=== PATIENT | male | born 1985 | race Caucasian/White ===

== ENCOUNTER 2021-12-03 09:01 | Emergency (ER) | payer SELFPAY ==
[2021-12-03 09:10] VITALS: BP 134/101; PULSE 108; RESP 16; TEMP 36.7; O2SAT 99; BMI 24.3
--- NOTE | 2021-12-03 09:29 | W.ED.DENTAL ---
HPI - Dental/Oral General: Chief complaint: Dental/Oral Stated complaint: tooth ache Time Seen by Provider: 12/03/21 09:18 History of Present Illness: Patient comes in with tooth pain. States that he has a tooth that started bothering her a couple of days ago that has been bad for a while. States the pain really started just a couple of days ago when he went camping. Associated symptoms: Denies fever(s) or odynophagia Review of Systems Const: Denies: fever(s) or body aches Eyes: Denies: change in vision or blurry vision ENMT: Reports: dental pain; Denies: throat pain or odynophagia Card: Denies: chest pain or palpitations Resp: Denies: dyspnea or productive cough GI: Denies: abdominal pain, nausea or vomiting : Denies: flank pain or dysuria Musc: Denies: neck pain or back pain Skin/Breast: Denies: rash or pruritus Neuro: Denies: headache(s) or numbness in extremities Psych: Denies: anxiety or change in appetite Endo: Denies: polyuria or excessive sweating Physical Exam Const: COMMON NORMALS: no acute distress, patient oriented x3, healthy appearing and alert HENMT: COMMON NORMALS: normocephalic and atraumatic HEAD & SCALP: normocephalic and atraumatic OTHER: multiple dental caries, tooth #18 is broken with dental caries, no fluctuant fluid collections next to the tooth. Eye: COMMON NORMALS: Equal, round and reactive pupils present and EOMs intact bilaterally PUPIL: Yes Equal, round and reactive pupils present Neck/C-Spine: COMMON NORMALS: full ROM and supple Resp: COMMON NORMALS: normal respiratory effort, No retractions and No use of accessory muscles Cardio: COMMON NORMALS: regular rate and regular rhythm RATE: regular rate RHYTHM: regular rhythm GI: COMMON NORMALS: Normal to inspection, nondistended, normoactive bowel sounds present, Soft to palpation and non-tender PALPATION: Yes Soft to palpation Back/Pelvis: COMMON NORMALS: thoracic and lumbar spine normal to inspection and no thoracic nor lumbar tenderness Extremity: COMMON NORMALS: normal to inspection and full ROM Neuro: COMMON NORMALS: patient oriented x3 SENSORIUM/ORIENTATION: Yes alert Psych: COMMON NORMALS: mental status grossly normal and cooperative Skin: COMMON NORMALS: no rashes or lesions noted and no wounds GENERAL SKIN EXAM: no rashes or lesions noted Course Vital Signs: Vital signs: Vital Signs Temperature 98.1 F 12/03/21 09:10 Pulse Rate 108 H 12/03/21 09:10 Respiratory Rate 16 12/03/21 09:10 Blood Pressure 134/101 12/03/21 09:10 Pulse Oximetry 99 12/03/21 09:10 MDM - Dental/Oral Medical Decision Making Patient comes in with tooth pain. States that he has a tooth that started bothering her a couple of days ago that has been bad for a while. States the pain really started just a couple of days ago when he went camping. On physical exam he has multiple dental caries, however tooth #18 is broken with dental caries, no fluctuant fluid collections next to the tooth. We will start him on antibiotics, pain medication, and discharge precautions return for worsening or changing symptoms. He states he has an appointment with the dentist on Sunday morning. Discharge Plan Discharge Patient Disposition: Home Clinical Impression: Fracture of tooth, Dental caries, Toothache Condition: Stable Prescriptions: New hydrocodone-acetaminophen 5-325 mg tablet 1 tab PO Q6H PRN (Reason: pain) Qty: 14 0RF penicillin V potassium 500 mg tablet 500 mg PO BID 7 Days Qty: 14 0RF No Action Fish Amoxil 1,000 mg PO DAILY 0RF Discharge Orders: Discharge ED (Routine); Ordered 12/03/21 Ordered By: Jose A Martinez Patient Instructions: Opioid Safety Coding Level of Care Code ED Compo Conveyor Operator for Shahriar Raines
[2021-12-03] MEDS: ketorolac 30 mg/mL INJ IM (09:30)
== END 2021-12-03 09:37 | disposition home or self-care (01) ==
PROVIDERS: Emergency Provider Emergency Medicine
DX: K03.81 Cracked tooth (principal); K02.9 Dental caries, unspecified
CPT/HCPCS: 96372; 99283; J1885

== ENCOUNTER 2023-11-23 13:03 | Emergency (ER) | payer SELFPAY ==
[2023-11-23 13:12] VITALS: BP 171/104; PULSE 68; RESP 18; O2SAT 99
--- NOTE | 2023-11-23 13:47 | ED_ITS ---
HPI - Dental/Oral 2 General: Chief complaint: Dental/Oral Stated complaint: tooth pain Time Seen by Provider: 11/23/23 13:32 Source: patient Mode of arrival: ambulatory Limitations: no limitations History of Present Illness: Patient is a 38-year-old male presents to ED today along with his mother for evaluation of dental pain over the past several days. Patient states he has dental pain to the right upper and lower teeth. He states he sees Dr. Brasher for his dentist but their office is closed today. He has not noticed any swelling to his face or neck. He is eating and drinking adequately. No trouble swallowing or breathing or controlling secretions. MD Complaint: tooth pain Teeth map: 1. 2. Onset (ago): day(s) Duration: constant Severity: severe Relieving factors: nothing Exacerbating factors: nothing Associated symptoms: Reports no associated symptoms; Denies ear or mastoid pain, fever(s) or odynophagia Treatment prior to arrival: oral analgesic Review of Systems 2 Const: Denies: fever(s), chills, body aches, fatigue or malaise ENMT: Reports: dental pain; Denies: throat pain, uvular edema, enlarged tonsils, odynophagia, hoarseness, mouth pain, swelling of lips/tongue, ear or mastoid pain or sinus pain Card: Denies: chest pain GI: Denies: nausea or vomiting Musc: Denies: neck pain Skin/Breast: Denies: rash Neuro: Denies: headache(s) Physical Exam 2 Const: COMMON NORMALS: no acute distress, average body habitus, no limitations, healthy appearing, alert and well nourished HENMT: FACE & SINUS: normal facial exam; no erythema and no edema MOUTH: Normal oral and palatal mucosa present and lip normal TEETH & GINGIVA: Yes caries and Yes other (no obvious dental abscess) TEETH & GINGIVA IMAGES: 1. dental caries 2. dental caries THROAT: posterior oropharynx normal and tonsils normal; no uvular edema Neck/C-Spine: COMMON NORMALS: no lymphadenopathy GENERAL: No anterior neck swelling and No submandibular swelling Neuro: SENSORIUM/ORIENTATION: Yes alert Course 2 Vital Signs: Vital signs: Vital Signs Pulse Rate 68 11/23/23 13:12 Respiratory Rate 18 11/23/23 13:12 Blood Pressure 171/104 11/23/23 13:12 Pulse Oximetry 99 11/23/23 13:12 Oxygen Delivery Me thod Room Air 11/23/23 13:12 MDM - Dental/Oral Medical Decision Making Patient will be placed on antibiotics and recommend he contact Dr. Brasher next week for follow-up. Return to ED precautions given. Differential Diagnosis Likely dental caries and toothache Medical Records I reviewed the patient's medical records. No radiology studies performed this visit Discharge Plan Discharge Patient Disposition: Home Clinical Impression: Dental caries, Toothache Condition: Stable Prescriptions: New clindamycin HCl 300 mg capsule 300 mg PO Q6H 7 Days Qty: 28 0RF Discontinued Fish Amoxil 1,000 mg PO DAILY No Action hydrocodone-acetaminophen 5-325 mg tablet 1 tab PO Q6H PRN (Reason: pain) Qty: 14 0RF Discharge Orders: Discharge ED (Routine); Ordered 11/23/23 Ordered By: Monique Webber Patient Instructions: Toothache (ED) Coding Level of Care Code ED Law Enforcement Director for Shahriar Raines
[2023-11-23] MEDS: ketorolac 60 mg/2 mL INJ IM (14:06)
[2023-11-23 14:15] VITALS: BP 146/99; PULSE 71; RESP 16; TEMP 36.8; O2SAT 98
== END 2023-11-23 14:19 | disposition home or self-care (01) ==
PROVIDERS: Emergency Provider Physician Assistant
DX: K02.9 Dental caries, unspecified (principal)
CPT/HCPCS: 96372; 99284; J1885

== ENCOUNTER 2024-10-20 10:57 | Emergency (ER) | payer SELFPAY ==
[2024-10-20 11:04] VITALS: BP 138/92; PULSE 107; RESP 18; TEMP 36.7; O2SAT 97; BMI 32.1
--- NOTE | 2024-10-20 11:59 | CT_ITS ---
WS: [id number] CT FACIAL BONES with and without contrast HISTORY: concern for infection TECHNIQUE: Images obtained from the supraorbital location through the mandible. Soft tissue and bone windows are reviewed. Coronal and sagittal reformats have also been submitted. DLP: 2389.[address] scans at [facility] use at least one of these dose optimization techniques: automated exposure control; mA and/or kV adjustment per patient size (includes targeted exams where dose is matched to clinical indication); or iterative reconstruction. COMPARISON: None available. Contrast: Omnipaque 350, 100 mL. Very mild soft tissue thickening surrounding the nose. Area of decreased attenuation measuring 11 mm along the mid bridge of the nose. Possible subperiosteal abscess along the mid nasal bone. The bone itself does not appear to be destroyed. There is only mild soft tissue edema. No additional areas of a bnormal enhancement. No additional fluid collections or abscesses. No air-fluid levels within the paranasal sinuses. There is a small mucous retention cyst in the RIGHT maxillary sinus. Mastoid air cells are clear. Mild ethmoid air cell disease. Negative orbits and globes. Small cervical chain lymph nodes. Largest lymph node is at level 2A on the RIGHT measuring 12 mm which is indeterminate.. CT/CT facial bones wo/w con [id number] IMPRESSION: 1. Possible very small subperiosteal abscess along the bridge of the nose. Abs cess measures 11 mm in maximum diameter. No underlying osseous abnormality. 2. Mild soft tissue edema over the mid face including the nose and maxilla. 3. Indeterminate cervical chain lymph nodes. The largest lymph node 12 mm on t he RIGHT at level 2A.
--- NOTE | 2024-10-20 11:59 | CT_ITS ---
WS: [id number] CT HEAD NONCONTRAST HISTORY: headache, h/o infection TECHNIQUE: Contiguous axial imaging performed through the brain. Bone and soft tissue windows. Sagittal and coronal reformats reviewed. All CT scans at [facility] use at least one of these dose optimization techniques: automated exposure control; mA and/or kV adjustment per patient size (includes targeted exams where dose is matched to clinical indication); or iterative reconstruction. DLP: 2389.58 mGy COMPARISON: None available. No acute intracranial hemorrhage, midline shift or mass effect. No atrophy or prior infarcts or herniation. Ventricles: Normal size with no hydrocephalus. No inferior displacement of the cerebellar tonsils. Paranasal sinuses: Mild ethmoid sinus mucoperiosteal disease. No air-fluid levels in the sinuses. Mastoid air cells: Well pneumatized. Calvarium and scalp: Skull is intact with no soft tissue edema or swelling. CT/CT head wo con* [id number] IMPRESSION: 1. No acute intracranial hemorrhage or edema. 2. No prior infarct or acute infarct. 3. Minimal ethmoid air cell disease.
[2024-10-20 13:31] LABS: Basophils # 0.1 10^3/uL (0.0-0.1); Basophils % 0.9 %; Eosinophils # 0.3 10^3/uL (0.0-0.8); Eosinophils % 2.2 %; Hematocrit 41.2 % (37-53); Lymphocytes % 32.2 %; Mean Corpuscular HGB Conc 32.3 g/dL (30-55); Mean Corpuscular Hemoglobin 29.4 pg (27-33); Mean Corpuscular Volume 91.2 fl (82-101); Mean Platelet Volume 10.4 fL (7.4-10.4); Monocytes # 0.8 10^3/uL (0.2-0.9); Monocytes % 6.1 %; Neutrophils # 7.31 10^3/uL (1.8-7.7); Neutrophils % 58.1 %; Nucleated Red Blood Cells % 0 %; Platelet Count 359 10^3/cmm (157-399); Red Blood Count 4.52 10^6/uL (3.85-5.65); Red Cell Distribution Width 12.3 % (12.1-15.1); White Blood Count 12.56 10^3/uL (3.29-11.43)
[2024-10-20 13:55] LABS: Lactic Sepsis W/Reflex 2.3 mmol/L (0.5-2.2)
[2024-10-20 13:55] LABS: Alanine Aminotransferase 12 U/L (0-41); Albumin Level 4.1 g/dL (3.5-5.2); Alkaline Phosphatase 69 U/L (40-130); Anion Gap 15.9 (5-19); Aspartate Amino Transferase 10 U/L (0-40); Blood Urea Nitrogen 8 mg/dL (6-20); Calcium 8.8 mg/dL (8.5-10.5); Carbon Dioxide 25 mmol/L (22-29); Chloride 102 mmol/L (98-107); Creatinine Clr Calc Pharmacy 96.0253; Globulin 2.9 g/dL (1.3-4.6); Glomerular Filtration Rate 93.5 mL/min (90-130); Glucose 104 mg/dL (65-115); Osmolality Calculated 287 mOsm/kg (285-295); Potassium 3.9 mmol/L (3.5-5.1); Sodium 139 mmol/L (136-145); Total Bilirubin 0.2 mg/dL (0.15-1.2)
--- NOTE | 2024-10-20 14:04 | ED_ITS ---
HPI - Headache 2 General: Chief Complaint: Headache Stated Complaint: facial swelling, GROSS Time Seen by Provider: 10/20/24 14:02 History of Present Illness: 39-year-old male presents to the emergen cy room with complaint of headache facial swelling for 1 month. He reports he has a sensitivity to the tip of his nose as well. He is referred most of his headache to the frontal region. 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 Associated symptoms: Deny chest pain, fever(s) or rash Related Data Previous Rx's ?Medication ?Instructions ?Recorded promethazine 25 mg tablet 25 mg PO Q6H PRN headache #2 0 tabs 10/20/24 sulfamethoxazole 800 2 tab PO BID #28 tabs mg-trimethoprim 160 mg tablet (Bactrim DS) Allergies Allergy/AdvReac Type Severity Reaction Status Date / Time No Known Allergies Allergy Verified 10/20/24 11:10 Review of Systems 2 Const: Denies: fever(s) or chills Card: Denies: chest pain Resp: Denies: dyspnea GI: Denies: abdominal pain : Denies: dysuria, urinary frequency or urinary urgency Musc: Denies: neck pain or back pain Skin/Breast: Denies: rash Neuro: Reports: headache(s) Physical Exam 2 Const: GENERAL APPEARANCE: cooperative ORIENTATION/CONSCIOUSNESS: Yes awake, Yes oriented to person, Yes oriented to place and Yes oriented to time HENMT: COMMON NORMALS: normocephalic, atraumatic and hearing grossly normal bilaterally HEAD & SCALP: normocephalic and atraumatic Resp: COMMON NORMALS: normal respiratory effort, No retractions, No use of accessory muscles and clear to auscultation bilaterally AUSCULTATION: clear to auscultation bilaterally Cardio: COMMON NORMALS: regular rate, regular rhythm and No murmurs present (Cardio) RATE: regular rate RHYTHM: regular rhythm GI: COMMON NORMALS: Soft to palpation and No hepatosplenomegaly present A USCULTATION: Yes normoactive bowel sounds PALPATION: Yes Soft to palpation, No Tenderness to palpation present (GI), No Guarding due to palpation present (GI) and Yes No hepatosplenomegaly present Extremity: COMMON NORMALS: normal to inspection, capillary refill normal, no clubbing, cyanosis or edema, no calf tenderness and no pedal edema Neuro: SENSORIUM/ORIENTATION: Yes oriented to person, Yes oriented to place and Yes oriented to time Skin: COMMON NORMALS: no rashes or lesions noted GENERAL SKIN EXAM: no rashes or lesions noted Course 2 Vital Signs: Vital signs: Vital Signs Temperature 98.0 F 10/20/24 11:04 Pulse Rate 72 10/20/24 17:46 Respiratory Rate 18 10/20/24 11:04 Blood Pressure 122/83 10/20/24 17:46 Pulse Oximetry 98 10/20/24 17:46 Oxygen Delivery Me thod Room Air 10/20/24 11:04 MDM - Headache Medical Decision Making Labs and imaging reviewed Dr. Osei is on-call for ENT I discussed with him he recommends outpatient treatment. Patient was given vancomycin in the emergency room discharged home on Bactrim DS 2 tablets twice a day he will follow-up up with Dr. Osei in the office in the next few days staff made arrangements for follow-up. Discussed findings with the patient he is in agreement. Medical Records I reviewed the patient's medical records. Lab Data I reviewed the patient's lab results. 10/20/24 13:04 10/20/24 13:[address] 10/20/24 11:59 IMPRESSION: 1. Possible very small subperiosteal abscess along the bridge of the nose. Abscess measures 11 mm in maximum diameter. No underlying osseous abnormality. 2. Mild soft tissue edema over the mid face including the nose and maxilla. 3. Indeterminate cervical chain lymph nodes. The largest lymph node 12 mm on the RIGHT at level 2A. Head CT 10/20/24 11:59 IMPRESSION: 1. No acute intracranial hemorrhage or edema. 2. No prior infarct or acute infarct. 3. Minimal ethmoid air cell disease. Laboratory Results WBC 12.56 10^3/uL (3.29-11.43) H 10/20/24 13:04 RBC 4.52 10^6/uL (3.85-5.65) 10/20/24 13:04 Hgb 13.30 g/dL (11.27-16.99) 10/20/24 13:04 Hct 41.2 % (37-53) 10/20/24 13:04 MCV 91.2 fl (82-101) 10/20/24 13:04 MCH 29.4 pg (27-33) 10/20/24 13:04 MCHC 32.3 g/dL (30-55) 10/20/24 13:04 RDW 12.3 % (12.1-15.1) 10/20/24 13:04 Plt Count 359 10^3/cmm (157-399) 10/20/24 13:04 MPV 10.4 fL (7.4-10.4) 10/20/24 13:04 Neut % (Auto) 58.1 % 10/20/24 13:04 Lymph % (Auto) 32.2 % 10/20/24 13:04 [place] % (Auto) 6.1 % 10/20/24 13:04 Eos % (Auto) 2.2 % 10/20/24 13:04 Baso % (Auto) 0.9 % 10/20/24 13:04 Neut # (Auto) 7.31 10^3/uL (1.8-7.7) 10/20/24 13:04 Lymph # (Auto) 4.0 10^3/uL (0.8-4.8) 10/20/24 13:04 [place] # (Auto) 0.8 10^3/uL (0.2-0.9) 10/20/24 13:04 Eos # (Auto) 0.3 10^3/uL (0.0-0.8) 10/20/24 13:04 Baso # (Auto) 0.1 10^3/uL (0.0-0.1) 10/20/24 13:04 Nucleated RBC % (auto) 0 % 10/20/24 13:04 Nucleated RBCs # 0.0 /100WBC 10/20/24 13:04 Sodium 139 mmol/L (136-145) 10/20/24 13:04 Potassium 3.9 mmol/L (3.5-5.1) 10/20/24 13:04 Chloride 102 mmol/L (98-107) 10/20/24 13:04 Carbon Dioxide 25 mmol/L (22-29) 10/20/24 13:04 Anion Gap 15.9 (5-19) 10/20/24 13:04 BUN 8 mg/dL (6-20) 10/20/24 13:04 Creatinine 0.9 mg/dL (0.7-1.2) 10/20/24 13:04 GFR Calculation 93.5 mL/min (90-130) 10/20/24 13:04 Glucose 104 mg/dL (65-115) 10/20/24 13:04 Calculated Osmolality 287 mOsm/kg (285-295) 10/20/24 13:04 Lactic Acid 2.3 mmol/L (0.5-2.2) H 10/20/24 13:07 Lactic Acid (Sepsis) 1.3 mmol/L (0.5-2.2) 10/20/24 15:53 Calcium 8.8 mg/dL (8.5-10.5) 10/20/24 13:04 Total Bilirubin 0.2 mg/dL (0.15-1.2) 10/20/24 13:04 AST 10 U/L (0-40) 10/20/24 13:04 ALT 12 U/L (0-41) 10/20/24 13:04 Alkaline Phosphatase 69 U/L (40-130) 10/20/24 13:04 C-Reactive Protein 3.0 mg/L (0.0-4.9) 10/20/24 13:04 Total Protein 7.0 g/dL (6.6-8.7) 10/20/24 13:04 Albumin 4.1 g/dL (3.5-5.2) 10/20/24 13:04 Globulin 2.9 g/dL (1.3-4.6) 10/20/24 13:04 All radiology interpretation(s) finalized by discharge Discharge Plan Discharge Patient Disposition: Home Clinical Impression: Abscess of periosteum without osteomyelitis, Headache Condition: Stable Prescriptions: New sulfamethoxazole-trimethoprim [Bactrim DS] 800-160 mg tablet 2 tab PO BID Qty: 28 0RF promethazine 25 mg tablet 25 mg PO Q6H PRN (Reason: headache) Qty: 20 0RF Discharge Orders: Discharge ED (Routine); Ordered 10/20/24 Ordered By: Aiden Escobar Discharge Diet: Usual diet Discharge Activity: Resume usual activity Patient Instructions: Opioid Safety, Pain Management Activity Restrictions/Additional Instructions: Thank you for choosing [facility] for your healthcare needs today. It is very important that you follow up as instructed or that you return to the Emergency Department should you have concerns or if your condition changes or worsens in any way. You are seen in the emergency room concerned about infection on the CT there is a small infection inside of the nose on the mucosa but there is no involvement of the bone. We reviewed with the on-call ear nose and throat doctor he will see you in the office in a few days case management make an appointment for you. You were given antibiotics here and start oral antibiotics tomorrow 2 pills twice a day until you see the ear nose and throat doctor. Return if you have any further problems or develop fever. Print Language: [place] Irish Coding Level of Care Code ED Cabin Furnishings Installer for Shahriar Raines
[2024-10-20] MEDS: iohexol 350 mg/mL 500 mL Btl (per mL) IV (14:26)
[2024-10-20] MEDS: sodium chloride 0.9% 1,000 ML 999 ML IV (14:45)
[2024-10-20] MEDS: ketorolac 30 mg/mL INJ IVP (14:52)
[2024-10-20] MEDS: prochlorperazine 10 mg/2 mL Inj IVP (14:53)
[2024-10-20 14:55] VITALS: BP 150/101; PULSE 78; O2SAT 97
[2024-10-20 15:13] LABS: Reflex Lactate Order REFLEX LACTIC ORDERD
[2024-10-20 16:17] LABS: Lactic Acid level (Lactate) 1.3 mmol/L (0.5-2.2)
[2024-10-20 16:36] VITALS: BP 122/83; PULSE 68; O2SAT 95
[2024-10-20] MEDS: VANCOMYCIN ADD-Vantage 1,000 MG in 0.9% NaCl ADD-Vantage 250 ML 250 MG IV (16:36)
--- NOTE | 2024-10-20 17:16 | DCPLANNER ---
faxed referral packet to dr. chambers
[2024-10-20 17:46] VITALS: BP 122/83; PULSE 72; O2SAT 98
== END 2024-10-20 17:48 | disposition home or self-care (01) ==
PROVIDERS: Emergency Medicine; Emergency Provider Family Medicine
DX: J34.0 Abscess, furuncle and carbuncle of nose (principal); R51.9 Headache, unspecified
CPT/HCPCS: 36415; 70450; 70488; 80053; 83605; 85025; 86140; 87040; 96361; 96365; 96375; 99285; J0780; J1885; J3370; J7030; J7050